=== PATIENT | female | born 1960 | race Caucasian/White ===

== ENCOUNTER 2017-09-17 07:32 | Emergency (ER) | payer OTHER ==
[2017-09-17] MEDS: ALBUTEROL 0.5% (NEB) 2.5 MG/0.5 ML AMP INH (08:08)
[2017-09-17] MEDS: IPRATROPIUM (NEB) 0.5 MG/2.5 ML AMP INH (08:08)
[2017-09-17] MEDS: predniSONE 20 MG TAB PO (08:59)
== END 2017-09-17 11:11 | disposition home or self-care (01) ==
LOC: FTE 07:32
DX: J45.901 Unspecified asthma with (acute) exacerbation (principal); I10 Essential (primary) hypertension; F17.210 Nicotine dependence, cigarettes, uncomplicated
CPT/HCPCS: 87400; 94644; 99284-25

== ENCOUNTER 2018-04-15 12:18 | Emergency (ER) | payer SELFPAY, OTHER | END 2018-04-15 13:23 | disposition left against medical advice (07) | LOC: FTE 12:18 | DX: Z53.21 Procedure and treatment not carried out due to patient leaving prior to being seen by health care provider (principal) ==